=== PATIENT | female | born 1985 | race Caucasian/White ===

== ENCOUNTER → 2018-02-10 15:47 | Outpatient (CLI) | payer MEDICAID, SELFPAY ==
[2018-02-13 13:19] LABS: HPV Reflexed? NOT INDICATED
== END ==
PROVIDERS: Family Provider Family Medicine; PCP Family Medicine; Visit Provider Obstetrics & Gynecology
DX: Z12.4 Encounter for screening for malignant neoplasm of cervix (principal)
CPT/HCPCS: 88175; G0145

== ENCOUNTER → 2018-08-11 16:27 | Outpatient (CLI) | payer MEDICAID, SELFPAY ==
[2015-10-30 14:19] VITALS: BMI 26.4
[2018-08-11 18:17] LABS: Vitamin D,25 Hydroxy 28.9 ng/mL (29.95-100.01)
[2018-08-11 18:23] LABS: Thyroid Stim Hormone (TSH) 0.77 uIU/mL (0.358-3.74)
== END ==
PROVIDERS: Visit Provider Obstetrics & Gynecology
DX: F32.9 Major depressive disorder, single episode, unspecified (principal); F39 Unspecified mood [affective] disorder
CPT/HCPCS: 36415; 82306; 84443

== ENCOUNTER 2018-09-24 05:58 | Day surgery (SDC) | payer MEDICAID, SELFPAY ==
--- NOTE | 2018-09-24 06:28 | EKG12_ITS ---
Test Reason : PRE OP Blood Pressure : / mmHG Vent. Rate : 074 BPM Atrial Rate : 074 BPM P-R Int : 138 ms QRS Dur : 080 ms QT Int : 370 ms P-R-T Axes : 061 057 060 degrees QTc Int : 410 ms Normal sinus rhythm Normal ECG No previous ECGs available Confirmed by ERNESTO LOUIS ([id number]), multimedia editor JOE ROBERT ([id number]) on 09/28/2018 2:41:12 PM Referred By: Kavita Leal Confirmed By:LORETA LOUIS
[2018-09-24 06:43] VITALS: BP 123/69; PULSE 78; RESP 14; TEMP 36.9; O2SAT 100; BMI 22.6
[2018-09-24 06:46] LABS: Hematocrit 40.5 % (37-47); Hemoglobin 14.1 g/dl (12.0-15.0); Mean Corp Hgb Conc 34.8 g/gl (32-36); Mean Corpuscular Hgb 31.3 pg (27.0-32.0); Platelet Count 196 K/mm3 (150-450); RBC Distribution Width CV 13.5 % (11.6-14.6); Scan Indicated on CBC? Y/N NO; White Blood Count 7.1 K/mm3 (4.4-11.0)
[2018-09-24 06:48] LABS: Internal QC Validated? YES +Cl - CLEAR BKGD; Pregnancy, Urine Negative Negative
[2018-09-24 07:03] LABS: Anion Gap 3 (5-15); BUN 11 mg/dL (7-18); BUN/Creat Ratio 15.2 RATIO (10-20); Calcium,Total 8.7 mg/dL (8.5-10.1); Chloride 110 mmol/L (98-107); Creatinine, Serum 0.72 mg/dL (0.55-1.02); EST Glomerular Filtration Rate 99 mL/min (>60); Est Glom Filt Rate - Afr Amer 119 mL/min (>60); Estimated Creatinine Clearance 92.79 ml/min; Glucose 95 mg/dL (74-106); Sodium Level 141 mmol/L (136-145)
[2018-09-24] MEDS: Bupiv/Epi 0.5% Mpf 30 ML Vial (07:14)
--- NOTE | 2018-09-24 07:15 | HP.PCM_ITS ---
History and Physical Date of Admission: 09/24/18 Name: TREY CHO Age: 32 Date of : 1985 HISTORY OF PRESENT ILLNESS: On 09/24/2018, Trey Cho, a 32 year old female 2 0 0 0 2, presented: To discuss tubal ligation. -As above. Long bartolomem DepoProvera user. Here for ACCOUNT TECHNICIAN problem. DepoProvera last given on 07/23/18. She is interested in having her tubes tied. More moodiness on DepoProvera. EB ALLERGIES: NKA MEDICATIONS HISTORY: Current medications prescribed by our practice are: 1. Depo-Provera 150 mg/mL intramuscular syringe, q 3 months REVIEW OF SYSTEMS: GENERAL - Denies fever, or chills SKIN - Denies skin changes EYES - Denies visual changes EARS - Denies difficulty hearing NOSE - Denies nasal congestion or bleeding MOUTH - Denies sore throat or difficulty swallowing NECK - Denies pain or swelling RESPIRATORY - Denies shortness of breath or wheezing CARDIOVASCULAR - Denies palpitations or chest pain GASTROINTESTINAL - Denies nausea, vomiting, diarrhea, constipation GENITOURINARY - Denies dysuria, frequency of urination, incontinence of urine MUSCULOSKELETAL - Denies joint or muscle pain NEUROLOGICAL - Denies localized numbness or weakness PSYCHIATRIC - Denies depression or anxiety ENDOCRINE - Denies heat or cold intolerance, weight loss or gain HEMATO-IMMUNOLOGIC - Denies excesive bleeding with cuts SURGICAL HISTORY: 1. Wisdome teeth removed 2006 MENSTRUAL HISTORY: LMP Known?- On Depo, LMP - 01/27/15, Age Onset Menarche - 14 FAMILY HISTORY: Father - FH: Diabetes mellitus type 2; MaternalGrandparent - FH: Cancer of colon; PaternalGrandparent - FH: Diabetes mellitus type 2; SOCIAL HISTORY: Alcohol Use - denies drinking Smoking - 1/2 pack/day--advised to quit Diet - balanced Diet Lifestyle - single Exercise - very active Seat Belt Use - always Employer - [employer] Illicit Drug Use - denies use of street drugs Sexual Activity - [employer] Residence - Lives with [facility] Place of - [place], [place] Hours Worked - 40 hours per week Spouse-Sig Other Name - Selwyn Moralez Spouse-Sig Other Occupation - [employer] Spouse-Sig Other Phone No - [phone] (cell), Children Name(s) - Ronen Moon Control - Depo PHYSICAL EXAMINATION BP- 140/96 Sitting, Right arm, regular cuff Weight- 129.80 lbs Height- 64.00 inch BMI:22.33 CONSTITUTIONAL - NAD, well nourished, and well developed HEENT - Normocephalic, PERRLA, EOMI NECK - no nuchal rigidity EXTREMITIES - No edema or calf tenderness NEUROLOGICAL - Cranial nerves II-XII grossly intact PSYCHIATRIC - A and O to time, place, person, mood and affect ASSESSMENT: 1. Unspecified Mood [affective] Disorder 2. Encounter For Sterilization 3. Other Specified Counseling PLAN BY DIAGNOSIS: 1. Encounter For Sterilization and Other Specified Counseling Reviewed options for surgical sterilization including: L/S BTO (filshie clips), L/S bilateral tubal fulgeration, L/S Salpingectomy for potential further reduction of ovarian cancer risk. Opts for L/S Bilateral salpingectomy Discussed R,B,A and failure rate. Reviewed surgical procedure and anticipated recovery. Federal consent for tubal ligation signed more than 30 d ago. RTO for postop incision check in 2 wks. New Prescription(s): Celexa 20 mg tablet 1 po daily 30 Refills 11
--- NOTE | 2018-09-24 07:27 | PCM.DC.TUB ---
Discharge Diet: No Restrictions Discharge Activity: May not drive while taking narcotic pain medications., May Shower, May Take a Tub Bath Return to work on:: 09/26/18 May resume sexual activity in: 1 week Additional Activity Instructions:: Ambulate often the next week after surgery. Nothing in the vagina for 5 days. Call your doctor if you observe: Fever of 101 or Higher, Inability to have a bowel movement, Uncontrolled pain Change Dressing in (Days):: 4 Remove Dressing in (days):: 4 Cleanse incision/area with: Soap & Water, Keep Dressing Clean & Dry Additional Instructions: Resume activity as tolerated/comfortable. You may take Tylenol 500 - 1000 mg every 8 hrs. Add OxyIR for more severe pain -- 1-2 tab by mouth every 6 hr Allergies/Adverse Reactions: Allergies No Known Allergies Allergy (Verified 09/17/18 09:39) Medications to take at Discharge Cholecalciferol (Vitamin D3) [Vitamin D3] 2,000 unit PO DAILY 09/17/18 Citalopram [Celexa] 40 mg PO DAILY 09/17/18 Oxycodone [Oxyir] 5 - 10 mg PO Q6H PRN PRN 3 Days #10 tablet 09/24/18 The following prescriptions were given: Oxycodone [Oxyir] 5 - 10 mg PO Q6H PRN PRN 3 Days #10 tablet PRN Reason: Mod-Severe Pain (4-10/10) Primary Care Physician: Mckay Reynoso MD [Primary Care Provider] - Test Results: Test results from this visit will be discussed in further detail at your follow-up appointment, if applicable. Please Follow Up With: Kavita Leal MD - [phone] When: Appt in 2 wk for postop follow up. Proposed Discharge Date: 09/24/18
--- NOTE | 2018-09-24 07:30 | FALS_PTH ---
PATIENT: TREY CHO [place] [facility] [place][id number] AGE/SX: 32/F ROOM: RE09/24/[address]: Dr. Kavita Leal MD : 1985 BED: DIS: 09/24/2018 SPEC #: [id number] RECD: 09/24/18 12:22 STATUS: LIN RAFAEL #: [id number] SHEREEN: 09/24/18 07:[address]: Kavita Leal DEPT: SURGICAL PATHOLOGY RECD BY: Krishan Thomas ENTERED: 09/24/18 13:37 SP TYPE: FALL TUBES OTHR DR: Dr. Mckay Reynoso MD Tissues: Fallopian tube Procedures: Surgery Specimen Level II HEADER OPERATION: Laparoscopic bilateral salpingectomy PRE-OP DIAGNOSIS: Desire for sterilization TISSUE SUBMITTED: Bilateral fallopian tubes MICROSCOPIC DIAGNOSIS Bilateral fallopian tubes, bilateral salpingectomy: Bilateral fallopian tubes including fimbrial ends, no pathologic diagnosis. A paratubal cyst. SJ:danie 09/25/18 MICROSCOPIC DESCRIPTION Slides are reviewed. GROSS DESCRIPTION Received is one container labeled with the patient's name and designated bilateral fallopian tubes. The specimen consists of bilateral fallopian tubes including fimbrial ends. One of the fallopian tubes measure 5 cm in length and 0.5 cm in diameter. The second fallopian tube measures 4 cm in length and 0.5 cm in diameter. A pedunculated paratubal cyst is noted measuring 0.5 x 0.3 x 0.2 cm. The pedicle measures 1.5 cm in length and 0.1 cm in diameter. Sections do not reveal any mass lesion. The fallopian tubes are not identified as right or left. Sections reveal unremarkable cut surfaces. Interior Horticulturist sections are submitted in two cassettes as follows: 1 - one fallopian tube, 2 - second fallopian tube and paratubal cyst. / TOBY:danie 09/24/18 TC:4 CPT: 69258 x2
--- NOTE | 2018-09-24 07:32 | DCINST_ITS ---
Discharge Diet: No Restrictions Discharge Activity: May not drive while taking narcotic pain medications., May Shower, May Take a Tub Bath Return to work on:: 09/26/18 May resume sexual activity in: 1 week Additional Activity Instructions:: Ambulate often the next week after surgery. Nothing in the vagina for 5 days. Call your doctor if you observe: Fever of 101 or Higher, Inability to have a bowel movement, Uncontrolled pain Change Dressing in (Days):: 4 Remove Dressing in (days):: 4 Cleanse incision/area with: Soap & Water, Keep Dressing Clean & Dry Additional Instructions: Resume activity as tolerated/comfortable. You may take Tylenol 500 - 1000 mg every 8 hrs. Add OxyIR for more severe pain -- 1-2 tab by mouth every 6 hr Allergies/Adverse Reactions: Allergies No Known Allergies Allergy (Verified 09/17/18 09:39) Medications to take at Discharge Cholecalciferol (Vitamin D3) [Vitamin D3] 2,000 unit PO DAILY 09/17/18 Citalopram [Celexa] 40 mg PO DAILY 09/17/18 Oxycodone [Oxyir] 5 - 10 mg PO Q6H PRN PRN 3 Days #10 tablet 09/24/18 The following prescriptions were given: Oxycodone [Oxyir] 5 - 10 mg PO Q6H PRN PRN 3 Days #10 tablet PRN Reason: Mod-Severe Pain (4-10/10) Primary Care Physician: Mckay Reynoso MD [Primary Care Provider] - Test Results: Test results from this visit will be discussed in further detail at your follow- up appointment, if applicable. Please Follow Up With: Kavita Leal MD - [phone] When: Appt in 2 wk for postop follow up. Proposed Discharge Date: 09/24/18
[2018-09-24 08:23] VITALS: BP 123/69; BP 126/98; PULSE 103; RESP 20; TEMP 36.6; O2SAT 95
[2018-09-24 08:30] VITALS: BP 111/64; BP 123/69; PULSE 78; RESP 16; O2SAT 94
[2018-09-24 08:45] VITALS: BP 111/64; BP 123/69; PULSE 62; RESP 16; O2SAT 93
[2018-09-24 09:00] VITALS: BP 112/73; BP 123/69; PULSE 58; RESP 16; TEMP 36.2; O2SAT 93
[2018-09-24 09:36] VITALS: BP 118/59; BP 123/69; PULSE 75; RESP 16; TEMP 36.4; O2SAT 95
--- NOTE | 2018-09-24 20:56 | PCM.OPRPT ---
Report of Operation Date of Procedure: 09/24/18 Pre-Operative Diagnosis: sterilization request Post-Operative Diagnosis: same Surgery/Procedure Performed:: Laparoscopic bilateral salpingectomy Description of Surgical Findings:: Findings; Normal appearing uterus. Fallopian tubes and ovaries are WNL. Gross inspection of bowel, omentum. liver edge, appendix are also WNL. photos were taken of the uterus and ovaries after Bilateral salpingectomy, and of the RUQ / liver edge military police officer: Loly Davidson Type of Anesthesia:: General Anesthesiologist: Tiara Eason - ANIL Specimen's removed: bilateral fallopian tubes Drains: Red pittman prior to case Estimated Blood Loss (mL): 20 cc Fluids Replaced: LR Description of Procedure: Narrative account: After the risks, benefits, alternatives of procedure had been reviewed with the patient, informed consent was obtained. The patient was taken back to the Operative room with an IV running. she was positioned on the operating table in dorsal supine position, where she was given general anesthesia. Once asleep she was repositioned to the dorsal lithotomy position and prepped and draped in the usual sterile fashion. A red Pittman catheter was used to drain the bladder prior to initiating the case. A sponge stick was placed into the vagina to allow manipulation of the uterus and cervix during the case. Attention was then turned to the anterior abdominal wall where 0.25 % Marcaine with epinephrine was instilled at the suprapubic and infraumbilical skin and at a point midway between in the midline. Skin incisions were then created in the midline at the suprapubic skin and at the infraumbilical skin and midway between the two. While maintaining upward traction of the anterior abdominal wall a Veress needle was inserted through the umbilical incision into the peritoneal cavity. There was free drop of saline, low opening pressure and free flow of CO2 noted. Once the intraabdominal pressure had reached 12 mm of mercury the Veress needle was removed and a bladeless 5 mm trocar was placed through infraumbilical skin incision into the peritoneal cavity. Correct placement was confirmed using the scope. Under direct visualization then with the patient in Trendelenburg position, a bladeless 5 mm trocar was inserted in through suprapubic skin incision into the peritoneal cavity and at a point midway between the infraumbilical and suprapubic trocars. The uterus as anteverted and both ovaries and fallopian tubes were WNL. The R fallopian tube was grasped and retracted medially and using a LigaSure device the fallopian tube was excised from the ovary and mesosalpinx. Excellent hemostasis was noted at the excision site. The R fallopian tube was brought through the suprapubic trocar and set aside for later pathology review. In a similar manner the L fallopian tube was grasped and retracted medially and the fallopian tube was excised and removed from the abdominal cavity through the suprapubic trochar. The Fallopian tubes were sent to pathology. Excellent hemostasis was noted by visualization of the pelvis, ovaries, and remaining mesosalpinx. Photos were taken of the uterus and Bilateral remaining ovaries and of the RUQ and liver edge. At this point the the procedure was terminated. The pneumoperitoneum was reduced and the instruments and trocars were removed from he the anterior abdominal wall skin. The skin incisions were closed with 4-0 Monocryl in a subcuticular fashion. Dermabond and OpSites were applied to the skin. The sponge stick was removed from the vagina. The patient was returned to dorsal supine position. She was awakened from general anesthesia. She was transferred to the recovery room bed in stable condition after tolerating the procedure well. Sponge, lap, needle and instrument counts were correct x two. Medications given preop and intraoperatively included: 10 cc of 1/2 % Marcaine with epinephrine --used as a subcutaneous block and Toradol 30 mg IV x one. For a complete listing of medications given preop and intraop , please see the anesthesia record. - Complications none - Admit VTE Documentation VTE Present on Admission: No VTE Mechan Device Prophylaxis: SCD's
== END 2018-09-24 09:40 | disposition home or self-care (01) ==
LOC: SDC 05:59 → AC 06:01
PROVIDERS: Anesthesiology; Family Provider Family Medicine; PCP Family Medicine; Referring Provider Obstetrics & Gynecology; Visit Provider Obstetrics & Gynecology
PROC: (CPT 58661; principal; 2018-09-24 07:15)
DX: Z30.2 Encounter for sterilization (principal); N83.8 Other noninflammatory disorders of ovary, fallopian tube and broad ligament; F17.210 Nicotine dependence, cigarettes, uncomplicated; F39 Unspecified mood [affective] disorder
CPT/HCPCS: 58661; 36415; 80048; 81025; 85027; 88302; 93005; J7120; J2405

== ENCOUNTER → 2021-10-15 | Outpatient (CLI) | payer MEDICAID, SELFPAY ==
[2021-10-18 18:19] LABS: HPV APTIMA, High Risk Negative (Negative)
== END | disposition home or self-care (01) ==
LOC: LABSPEC 11:38
PROVIDERS: PCP Family Medicine; Visit Provider Student in an Organized Health Care Education/Training Program
DX: Z12.4 Encounter for screening for malignant neoplasm of cervix (principal)
CPT/HCPCS: 87624; 88175; G0145